=== PATIENT | female | born 1995 | race Caucasian/White ===

== ENCOUNTER 2018-05-12 14:56 | Outpatient (CLI) | payer OTHER ==
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
== END 2018-05-12 14:57 | disposition home or self-care (01) ==
LOC: TBSIIMAG 14:56
PROVIDERS: ATTEND Neurological Surgery
DX: S12.9XXA Fracture of neck, unspecified, initial encounter (principal); M40.50 Lordosis, unspecified, site unspecified
CPT/HCPCS: 72040; 72125

== ENCOUNTER 2024-04-19 11:38 | Outpatient (CLI) | payer OTHER | END 2024-04-19 11:39 | disposition home or self-care (01) | LOC: SCSRAD 11:38 | PROVIDERS: ATTEND Nurse Practitioner Family | DX: M79.672 Pain in left foot (principal) ==